=== PATIENT | male | born 1990 | race African-American/Black ===

== ENCOUNTER 2025-03-25 19:45 | Emergency (ER) | payer MEDICAID ==
[~2025-03-25] VITALS: Ht 175.3 cm; Wt 61.0 kg
[2025-03-25 19:54] VITALS: O2SAT 100
[2025-03-25] MEDS ORDERED: NAPR-1176 MT (21:29)
[2025-03-25 21:42] VITALS: BP 109/64; PULSE 55; RESP 14; TEMP 36.7; O2SAT 100
== END 2025-03-25 21:48 | disposition home or self-care (01) ==
LOC: ER 19:45
DX: Z48.817 Encounter for surgical aftercare following surgery on the skin and subcutaneous tissue (principal); L90.5 Scar conditions and fibrosis of skin; R60.9 Edema, unspecified; Z79.1 Long term (current) use of non-steroidal anti-inflammatories (NSAID); J45.909 Unspecified asthma, uncomplicated; Z79.899 Other long term (current) drug therapy
CPT/HCPCS: 99283